=== PATIENT | female | born 1970 | race Two or more races ===

== ENCOUNTER 2018-11-27 17:45 | Emergency (ER) | payer MEDICAID ==
[~2018-11-27] VITALS: Ht 170.2 cm; Wt 72.0 kg
[2018-11-27] MEDS ORDERED: KETOROLAC 30MG/ML VIAL IV STA (20:38)
[2018-11-27] MEDS ORDERED: SODIUM CHLORIDE 0.9% 1,000 ML IV ONE (20:38)
[2018-11-27] MEDS ORDERED: HYDROCHLOROTHIAZIDE 25MG TABLET PO ONE (21:15)
[2018-11-28 00:15] VITALS: BP 170/100
== END 2018-11-28 01:30 | disposition home or self-care (01) ==
LOC: ER 17:45
DX: J02.9 Acute pharyngitis, unspecified (principal); I10 Essential (primary) hypertension
CPT/HCPCS: 70450; 81025; 87070; 87430; 96374; 99284; J1885; J7030; Z7610